=== PATIENT | female | born 1965 | race Asian ===

== ENCOUNTER 2021-08-29 19:30 | Inpatient (IN) | payer MEDICAID ==
[~2021-08-29] VITALS: Ht 167.6 cm; Wt 99.8 kg
[2021-08-29 20:00] VITALS: BP 130/70
[2021-08-29] MEDS ORDERED: HYDROCODONE/ACETAMINOPHEN 5/325MG TABLET PO PRN (20:15)
[2021-08-29] MEDS ORDERED: DEXTROSE 50% WATER 50ML SYRINGE IV PRN (20:15)
[2021-08-29] MEDS ORDERED: IPRATROPIUM/ALBUTEROL 0.5-3(2.5)MG/3ML NEB HHN PRN (20:15)
[2021-08-29] MEDS ORDERED: MORPHINE SULFATE 2 MG/ML CPJ (NOT FOR IM USE) IV PRN (20:15)
[2021-08-29] MEDS ORDERED: ONDANSETRON HCL 4MG/2ML INJ IV PRN (20:15)
[2021-08-29] MEDS ORDERED: ACETAMINOPHEN 325MG TABLET PO PRN ×2 (20:15)
[2021-08-29] MEDS ORDERED: CLONIDINE 0.1MG TABLET PO PRN (20:30)
[2021-08-29] MEDS ORDERED: NALOXONE HCL 0.4MG/ML VIAL IV PRN (20:45)
[2021-08-29] MEDS: INSULIN LISPRO 100 UNITS/ML SUBCUT SCH (20:49)
[2021-08-29] MEDS: BLOOD SUGAR DIAGNOSTIC STRIP TEST SCH (20:49)
[2021-08-29] MEDS: ATORVASTATIN CALCIUM 40MG TABLET PO SCH (20:49)
[2021-08-29] MEDS ORDERED: ATORVASTATIN CALCIUM 40MG TABLET PO SCH (21:00)
[2021-08-30] MEDS ORDERED: ZOLPIDEM TARTRATE 5MG TABLET PO PRN
[2021-08-30] MEDS: BLOOD SUGAR DIAGNOSTIC STRIP TEST SCH ×4 (06:01→20:20)
[2021-08-30] MEDS: INSULIN LISPRO 100 UNITS/ML SUBCUT SCH ×4 (06:39→21:05)
[2021-08-30 07:34] LABS: CHLORIDE 104 mEq/L (98-107)
[2021-08-30 07:38] LABS: BASOPHILS % 0.5 % (0.0-2.0); HEMOGLOBIN. 14.4 g/dL (12.0-16.0); MEAN CORPUSCULAR HEMOGLOBIN 29.3 pg (28.0-32.0); MEAN CORPUSCULAR VOLUME 83.2 fL (81.0-99.0); MEAN PLATELET VOLUME 7.9 fl (7.4-10.4); MONOCYTES % 5.7 % (2.0-8.0); NEUTROPHILS % 69.8 % (40.0-76.0); PLATELET 274 x1000/uL (130-400); RED BLOOD CELL COUNT 4.93 mill/uL (4.2-5.4); RED CELL DISTRIBUTION WIDTH 12.8 % (11.6-14.6)
[2021-08-30 08:00] VITALS: BP 108/90
[2021-08-30] MEDS ORDERED: AMLODIPINE 10MG TABLET PO SCH (09:00)
[2021-08-30] MEDS ORDERED: ASPIRIN 81MG TABLET PO SCH (09:00)
[2021-08-30] MEDS: GLIPIZIDE 5MG TABLET PO SCH (09:38)
[2021-08-30] MEDS: METFORMIN HCL 500MG TABLET PO SCH ×2 (09:39→17:48)
[2021-08-30] MEDS: CLOPIDOGREL 75MG TABLET PO SCH (09:39)
[2021-08-30] MEDS: AMLODIPINE 10MG TABLET PO SCH (09:40)
[2021-08-30] MEDS: ASPIRIN 81MG TABLET PO SCH (09:40)
[2021-08-30] MEDS: LISINOPRIL 20MG TABLET PO SCH (09:40)
[2021-08-30] MEDS ORDERED: POTASSIUM CHLORIDE 20MEQ TABLET SR PO NR (10:30)
[2021-08-30 20:00] VITALS: BP 121/85
[2021-08-30] MEDS: ENOXAPARIN 30MG/0.3ML SYR SUBCUT SCH (20:20)
[2021-08-30] MEDS: ATORVASTATIN CALCIUM 40MG TABLET PO SCH (20:20)
[2021-08-31] MEDS: INSULIN LISPRO 100 UNITS/ML SUBCUT SCH ×4 (05:37→21:54)
[2021-08-31] MEDS: BLOOD SUGAR DIAGNOSTIC STRIP TEST SCH ×4 (05:37→21:05)
[2021-08-31 08:00] VITALS: BP 110/76
[2021-08-31 08:24] LABS: CHLORIDE 104 mEq/L (98-107)
[2021-08-31 08:35] LABS: VITAMIN B12 SERUM 794 pg/mL (211-911)
[2021-08-31 08:37] LABS: FOLIC ACID (FOLATE) SERUM > 20.00 ng/mL (>5.38)
[2021-08-31] MEDS: ENOXAPARIN 30MG/0.3ML SYR SUBCUT SCH ×2 (09:26→21:47)
[2021-08-31] MEDS: GLIPIZIDE 5MG TABLET PO SCH (09:27)
[2021-08-31] MEDS: ASPIRIN 81MG TABLET PO SCH (09:27)
[2021-08-31] MEDS: LISINOPRIL 20MG TABLET PO SCH (09:27)
[2021-08-31] MEDS: CLOPIDOGREL 75MG TABLET PO SCH (09:27)
[2021-08-31] MEDS: AMLODIPINE 10MG TABLET PO SCH (09:29)
[2021-08-31 10:46] LABS: FERRITIN 192 ng/mL (10-291)
[2021-08-31 20:00] VITALS: BP 135/75
[2021-08-31] MEDS: ATORVASTATIN CALCIUM 40MG TABLET PO SCH (21:46)
[2021-09-01] MEDS: BLOOD SUGAR DIAGNOSTIC STRIP TEST SCH ×4 (06:31→21:00)
[2021-09-01 07:55] VITALS: BP 115/60
[2021-09-01] MEDS: INSULIN LISPRO 100 UNITS/ML SUBCUT SCH ×4 (09:00→22:08)
[2021-09-01] MEDS: GLIPIZIDE 10MG TABLET PO SCH (09:18)
[2021-09-01] MEDS: ASPIRIN 81MG TABLET PO SCH (09:18)
[2021-09-01] MEDS: AMLODIPINE 10MG TABLET PO SCH (09:19)
[2021-09-01] MEDS: CLOPIDOGREL 75MG TABLET PO SCH (09:20)
[2021-09-01] MEDS: LISINOPRIL 20MG TABLET PO SCH (09:20)
[2021-09-01] MEDS: ENOXAPARIN 30MG/0.3ML SYR SUBCUT SCH ×2 (09:21→22:01)
[2021-09-01 20:00] VITALS: BP 123/87
[2021-09-01] MEDS: ATORVASTATIN CALCIUM 40MG TABLET PO SCH (22:01)
[2021-09-02] MEDS: BLOOD SUGAR DIAGNOSTIC STRIP TEST SCH ×4 (06:26→21:00)
[2021-09-02] MEDS: INSULIN LISPRO 100 UNITS/ML SUBCUT SCH ×4 (06:29→22:16)
[2021-09-02] MEDS: GLIPIZIDE 10MG TABLET PO SCH (09:16)
[2021-09-02] MEDS: ENOXAPARIN 30MG/0.3ML SYR SUBCUT SCH ×2 (09:16→22:11)
[2021-09-02] MEDS: ASPIRIN 81MG TABLET PO SCH (09:16)
[2021-09-02] MEDS: AMLODIPINE 10MG TABLET PO SCH (09:16)
[2021-09-02] MEDS: LISINOPRIL 20MG TABLET PO SCH (09:17)
[2021-09-02] MEDS: CLOPIDOGREL 75MG TABLET PO SCH (09:17)
[2021-09-02 09:49] VITALS: BP 128/80
[2021-09-02 20:00] VITALS: BP 112/56
[2021-09-02] MEDS: ATORVASTATIN CALCIUM 40MG TABLET PO SCH (22:10)
[2021-09-03] MEDS: BLOOD SUGAR DIAGNOSTIC STRIP TEST SCH ×4 (06:22→21:55)
[2021-09-03] MEDS: INSULIN LISPRO 100 UNITS/ML SUBCUT SCH ×4 (06:50→22:37)
[2021-09-03 07:35] LABS: BASOPHILS % 0.6 % (0.0-2.0); EOSINOPHILS % 2.4 % (0.0-5.0); HEMOGLOBIN. 13.7 g/dL (12.0-16.0); LYMPHOCYTES % 30.8 % (20.0-50.0); MEAN CORPUSCULAR HEMOGLOBIN 28.7 pg (28.0-32.0); MEAN CORPUSCULAR VOLUME 83.4 fL (81.0-99.0); MEAN PLATELET VOLUME 8.2 fl (7.4-10.4); MONOCYTES % 6.2 % (2.0-8.0); PLATELET 263 x1000/uL (130-400); RED BLOOD CELL COUNT 4.79 mill/uL (4.2-5.4); RED CELL DISTRIBUTION WIDTH 12.5 % (11.6-14.6)
[2021-09-03 07:50] LABS: CHLORIDE 107 mEq/L (98-107)
[2021-09-03 08:00] VITALS: BP 114/77
[2021-09-03] MEDS: ASPIRIN 81MG TABLET PO SCH (09:20)
[2021-09-03] MEDS: GLIPIZIDE 10MG TABLET PO SCH (09:20)
[2021-09-03] MEDS: CLOPIDOGREL 75MG TABLET PO SCH (09:21)
[2021-09-03] MEDS: AMLODIPINE 10MG TABLET PO SCH (09:21)
[2021-09-03] MEDS: LISINOPRIL 20MG TABLET PO SCH (09:22)
[2021-09-03] MEDS: ENOXAPARIN 30MG/0.3ML SYR SUBCUT SCH ×2 (09:22→22:32)
[2021-09-03] MEDS: ATORVASTATIN CALCIUM 40MG TABLET PO SCH (22:32)
[2021-09-04] MEDS: BLOOD SUGAR DIAGNOSTIC STRIP TEST SCH ×4 (06:09→21:52)
[2021-09-04] MEDS: INSULIN LISPRO 100 UNITS/ML SUBCUT SCH ×4 (06:13→21:59)
[2021-09-04 07:49] VITALS: BP 127/64
[2021-09-04] MEDS: GLIPIZIDE 10MG TABLET PO SCH (09:00)
[2021-09-04] MEDS: ENOXAPARIN 30MG/0.3ML SYR SUBCUT SCH ×2 (10:43→21:50)
[2021-09-04] MEDS: CLOPIDOGREL 75MG TABLET PO SCH (10:43)
[2021-09-04] MEDS: ASPIRIN 81MG TABLET PO SCH (10:44)
[2021-09-04] MEDS: AMLODIPINE 10MG TABLET PO SCH (10:44)
[2021-09-04] MEDS: LISINOPRIL 20MG TABLET PO SCH (10:44)
[2021-09-04 20:00] VITALS: BP 114/59
[2021-09-04] MEDS: ATORVASTATIN CALCIUM 40MG TABLET PO SCH (21:49)
[2021-09-05] MEDS: BLOOD SUGAR DIAGNOSTIC STRIP TEST SCH ×4 (06:51→21:00)
[2021-09-05 08:00] VITALS: BP 146/85
[2021-09-05] MEDS: ASPIRIN 81MG TABLET PO SCH (08:25)
[2021-09-05] MEDS: CLOPIDOGREL 75MG TABLET PO SCH (08:27)
[2021-09-05] MEDS: LISINOPRIL 20MG TABLET PO SCH (08:27)
[2021-09-05] MEDS: ENOXAPARIN 30MG/0.3ML SYR SUBCUT SCH ×2 (08:27→22:25)
[2021-09-05] MEDS: INSULIN LISPRO 100 UNITS/ML SUBCUT SCH ×4 (08:28→21:00)
[2021-09-05] MEDS: AMLODIPINE 10MG TABLET PO SCH (11:40)
[2021-09-05] MEDS: GLIPIZIDE 10MG TABLET PO SCH (11:46)
[2021-09-05 20:00] VITALS: BP 127/71
[2021-09-05] MEDS: ATORVASTATIN CALCIUM 40MG TABLET PO SCH (22:25)
[2021-09-06] MEDS: BLOOD SUGAR DIAGNOSTIC STRIP TEST SCH ×4 (06:30→20:31)
[2021-09-06] MEDS: INSULIN LISPRO 100 UNITS/ML SUBCUT SCH ×4 (06:55→20:46)
[2021-09-06 07:55] VITALS: BP 134/84
[2021-09-06] MEDS: LISINOPRIL 20MG TABLET PO SCH (11:15)
[2021-09-06] MEDS: GLIPIZIDE 10MG TABLET PO SCH (11:15)
[2021-09-06] MEDS: AMLODIPINE 10MG TABLET PO SCH (11:15)
[2021-09-06] MEDS: CLOPIDOGREL 75MG TABLET PO SCH (11:15)
[2021-09-06] MEDS: ASPIRIN 81MG TABLET PO SCH (11:16)
[2021-09-06] MEDS: ENOXAPARIN 30MG/0.3ML SYR SUBCUT SCH ×2 (11:16→20:27)
[2021-09-06 20:00] VITALS: BP 124/78
[2021-09-06] MEDS: ATORVASTATIN CALCIUM 40MG TABLET PO SCH (20:27)
[2021-09-07] MEDS: BLOOD SUGAR DIAGNOSTIC STRIP TEST SCH ×4 (06:26→21:30)
[2021-09-07 06:49] LABS: BASOPHILS % 0.4 % (0.0-2.0); EOSINOPHILS % 2.9 % (0.0-5.0); HEMATOCRIT. 39.4 % (36.0-48.0); HEMOGLOBIN. 13.5 g/dL (12.0-16.0); LYMPHOCYTES % 19.8 % (20.0-50.0); MEAN CORPUSCULAR HEMOGLOBIN 28.6 pg (28.0-32.0); MEAN CORPUSCULAR VOLUME 83.5 fL (81.0-99.0); MEAN PLATELET VOLUME 8.2 fl (7.4-10.4); MONOCYTES % 6.1 % (2.0-8.0); NEUTROPHILS % 70.8 % (40.0-76.0); PLATELET 277 x1000/uL (130-400); RED BLOOD CELL COUNT 4.72 mill/uL (4.2-5.4); RED CELL DISTRIBUTION WIDTH 12.6 % (11.6-14.6)
[2021-09-07 07:01] LABS: CHLORIDE 104 mEq/L (98-107)
[2021-09-07] MEDS: ASPIRIN 81MG TABLET PO SCH (07:59)
[2021-09-07 08:00] VITALS: BP 133/70
[2021-09-07] MEDS: LISINOPRIL 20MG TABLET PO SCH (08:04)
[2021-09-07] MEDS: AMLODIPINE 10MG TABLET PO SCH (08:04)
[2021-09-07] MEDS: GLIPIZIDE 10MG TABLET PO SCH ×2 (08:05→18:16)
[2021-09-07] MEDS: CLOPIDOGREL 75MG TABLET PO SCH (08:05)
[2021-09-07] MEDS: INSULIN LISPRO 100 UNITS/ML SUBCUT SCH ×4 (08:08→21:37)
[2021-09-07] MEDS: ENOXAPARIN 30MG/0.3ML SYR SUBCUT SCH ×2 (09:00→21:31)
[2021-09-07 20:00] VITALS: BP 101/74
[2021-09-07] MEDS: ATORVASTATIN CALCIUM 40MG TABLET PO SCH (21:31)
[2021-09-08 04:07] LABS: 25-HYDROXY VITAMIN D3 19 ng/mL (.)
[2021-09-08] MEDS: BLOOD SUGAR DIAGNOSTIC STRIP TEST SCH ×4 (06:23→21:00)
[2021-09-08] MEDS: INSULIN LISPRO 100 UNITS/ML SUBCUT SCH ×4 (06:27→23:26)
[2021-09-08 08:00] VITALS: BP 127/64
[2021-09-08] MEDS: CLOPIDOGREL 75MG TABLET PO SCH (09:00)
[2021-09-08] MEDS: ASPIRIN 81MG TABLET PO SCH (09:55)
[2021-09-08] MEDS: GLIPIZIDE 10MG TABLET PO SCH ×2 (09:56→18:11)
[2021-09-08] MEDS: AMLODIPINE 10MG TABLET PO SCH (09:56)
[2021-09-08] MEDS: LISINOPRIL 20MG TABLET PO SCH (09:57)
[2021-09-08] MEDS: ENOXAPARIN 30MG/0.3ML SYR SUBCUT SCH ×2 (09:57→23:21)
[2021-09-08] MEDS: GABAPENTIN 100MG CAPSULE PO SCH ×2 (17:00→18:12)
[2021-09-08 20:00] VITALS: BP 113/62
[2021-09-08] MEDS: ATORVASTATIN CALCIUM 40MG TABLET PO SCH (23:22)
[2021-09-09] MEDS: BLOOD SUGAR DIAGNOSTIC STRIP TEST SCH ×4 (07:01→21:00)
[2021-09-09 08:00] VITALS: BP 112/58
[2021-09-09] MEDS: INSULIN LISPRO 100 UNITS/ML SUBCUT SCH ×4 (09:00→22:29)
[2021-09-09] MEDS: GABAPENTIN 100MG CAPSULE PO SCH ×2 (09:26→17:07)
[2021-09-09] MEDS: ASPIRIN 81MG TABLET PO SCH (09:26)
[2021-09-09] MEDS: CLOPIDOGREL 75MG TABLET PO SCH (09:26)
[2021-09-09] MEDS: GLIPIZIDE 10MG TABLET PO SCH ×2 (09:27→17:07)
[2021-09-09] MEDS: AMLODIPINE 10MG TABLET PO SCH (09:27)
[2021-09-09] MEDS: ENOXAPARIN 30MG/0.3ML SYR SUBCUT SCH ×2 (09:28→22:22)
[2021-09-09] MEDS: LISINOPRIL 20MG TABLET PO SCH (09:28)
[2021-09-09] MEDS ORDERED: ERGOCALCIFEROL 50000UNITS CAPSULE PO SCH (12:41)
[2021-09-09 20:00] VITALS: BP 118/64
[2021-09-09] MEDS: ATORVASTATIN CALCIUM 40MG TABLET PO SCH (22:22)
[2021-09-10] MEDS: INSULIN LISPRO 100 UNITS/ML SUBCUT SCH ×4 (06:41→21:00)
[2021-09-10] MEDS: BLOOD SUGAR DIAGNOSTIC STRIP TEST SCH ×4 (06:41→21:00)
[2021-09-10 08:00] VITALS: BP 116/65
[2021-09-10] MEDS: GABAPENTIN 100MG CAPSULE PO SCH ×2 (10:14→18:12)
[2021-09-10] MEDS: CLOPIDOGREL 75MG TABLET PO SCH (10:14)
[2021-09-10] MEDS: AMLODIPINE 10MG TABLET PO SCH (10:14)
[2021-09-10] MEDS: LINAGLIPTIN 5MG TABLET PO SCH (10:15)
[2021-09-10] MEDS: ASPIRIN 81MG TABLET PO SCH (10:15)
[2021-09-10] MEDS: LISINOPRIL 20MG TABLET PO SCH (10:15)
[2021-09-10] MEDS: GLIPIZIDE 10MG TABLET PO SCH ×2 (10:16→18:12)
[2021-09-10] MEDS: ENOXAPARIN 30MG/0.3ML SYR SUBCUT SCH ×2 (10:16→20:32)
[2021-09-10 20:00] VITALS: BP 103/67
[2021-09-10] MEDS: ATORVASTATIN CALCIUM 40MG TABLET PO SCH (20:31)
[2021-09-11] MEDS: BLOOD SUGAR DIAGNOSTIC STRIP TEST SCH ×2 (06:30→11:15)
[2021-09-11] MEDS: INSULIN LISPRO 100 UNITS/ML SUBCUT SCH (06:36)
[2021-09-11 08:00] VITALS: BP 129/75
[2021-09-11] MEDS: GLIPIZIDE 10MG TABLET PO SCH (09:28)
[2021-09-11] MEDS: AMLODIPINE 10MG TABLET PO SCH (09:28)
[2021-09-11] MEDS: ASPIRIN 81MG TABLET PO SCH (09:28)
[2021-09-11] MEDS: LINAGLIPTIN 5MG TABLET PO SCH (09:28)
[2021-09-11] MEDS: LISINOPRIL 20MG TABLET PO SCH (09:29)
[2021-09-11] MEDS: ENOXAPARIN 30MG/0.3ML SYR SUBCUT SCH (09:29)
[2021-09-11] MEDS: CLOPIDOGREL 75MG TABLET PO SCH (09:29)
[2021-09-11] MEDS: GABAPENTIN 100MG CAPSULE PO SCH (09:29)
[2021-09-11] MEDS ORDERED: INSU100I28 SQ (14:10)
[2021-09-11] MEDS ORDERED: CLOP75TA15 PO (14:10)
[2021-09-11] MEDS ORDERED: AMLO10TA80 PO (14:10)
[2021-09-11] MEDS ORDERED: LINA5TAB PO (14:10)
[2021-09-11] MEDS ORDERED: GABA-529 PO (14:10)
[2021-09-11] MEDS ORDERED: GLIP10TA10 PO (14:10)
[2021-09-11] MEDS ORDERED: LISI20TA31 PO (14:10)
[2021-09-11] MEDS ORDERED: LIP40 PO (14:10)
[2021-09-11 16:12] VITALS: BP 129/75
== END 2021-09-11 16:35 | disposition home health service (06) | DRG 45 ==
PROVIDERS: ADMIT Physical Medicine & Rehabilitation Spinal Cord Injury Medicine; ATTEND Family Medicine Adult Medicine
DX: I63.9 Cerebral infarction, unspecified (principal); E46 Unspecified protein-calorie malnutrition; I69.351 Hemiplegia and hemiparesis following cerebral infarction affecting right dominant side; E87.1 Hypo-osmolality and hyponatremia; E55.9 Vitamin D deficiency, unspecified; E66.9 Obesity, unspecified; E78.00 Pure hypercholesterolemia, unspecified; E78.5 Hyperlipidemia, unspecified; E87.6 Hypokalemia; I10 Essential (primary) hypertension; R13.10 Dysphagia, unspecified; R29.810 Facial weakness; R47.1 Dysarthria and anarthria; R26.9 Unspecified abnormalities of gait and mobility; E11.65 Type 2 diabetes mellitus with hyperglycemia; Z79.84 Long term (current) use of oral hypoglycemic drugs; Z82.49 Family history of ischemic heart disease and other diseases of the circulatory system; Z90.49 Acquired absence of other specified parts of digestive tract; Z63.4 Disappearance and death of family member; Z68.35 Body mass index [BMI] 35.0-35.9, adult; Z79.899 Other long term (current) drug therapy; Z71.3 Dietary counseling and surveillance
CPT/HCPCS: 36415; 80048; 80053; 82306; 82607; 82728; 82746; 82962; 83540; 83550; 84134; 84439; 84443; 85025; 92523; 92610; 93970; 97110; 97112; 97116; 97162; 97166; 97530; 97535; 97760; A4565; J1650; J1815